=== PATIENT | female | born 2000 | race Caucasian/White ===

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

== ENCOUNTER 2022-09-19 12:00 | Inpatient (IN) | payer OTHER ==
[~2022-09-19] VITALS: Ht 165.1 cm; Wt 61.7 kg
[2022-09-19 13:04] LABS: BASOPHILS ABSOLUTE AUTO 0.02 K/mm3 (0.00-0.23); BASOPHILS PERCENT AUTO 0 % (0-2); EOSINOPHILS ABSOLUTE AUTO 0.01 K/mm3 (0.00-0.68); EOSINOPHILS PERCENT AUTO 0 % (0-6); Hematocrit 37.3 % (33.0-51.0); Hemoglobin 12.8 g/dL (11.5-16.0); IMMATURE GRAN ABSOLUTE AUTO 0.07 K/mm3 (0.00-0.10); IMMATURE GRAN PERCENT AUTO 0 % (0-1); LYMPHOCYTES ABSOLUTE AUTO 1.76 K/mm3 (0.84-5.20); LYMPHOCYTES PERCENT AUTO 10 % (21-46); MONOCYTES ABSOLUTE AUTO 1.06 K/mm3 (0.16-1.47); MONOCYTES PERCENT AUTO 6 % (4-13); Mean Corpuscular HGB 29.8 pg (26.0-34.0); Mean Corpuscular HGB Conc 34.3 g/dL (31.5-36.5); Mean Corpuscular Volume 87 fL (80-100); Mean Platelet Volume 9.9 fL (9.1-12.4); NEUTROPHILS ABSOLUTE AUTO 14.57 K/mm3 (1.96-9.15); NEUTROPHILS PERCENT AUTO 83 % (41-73); Platelet Count 278 K/mm3 (150-400); RDW Coefficient Variation 13.1 % (11.7-14.2); RDW Standard Deviation 41.1 fL (35.1-46.3); Red Blood Cell Count 4.29 M/mm3 (3.80-5.20); White Blood Cell Count 17.49 K/mm3 (4.00-11.30)
[2022-09-19 13:19] LABS: C-REACTIVE PROTEIN, EXT RANGE 9.75 mg/dL (0.000-0.300)
[2022-09-19 13:21] LABS: Albumin, Blood 3.7 g/dL (3.4-5.0); Albumin/Globulin Ratio 0.9 (0.8-1.8); Bilirubin, Total 0.7 mg/dL (0.1-1.0); Bun/Creatinine Ratio 21.9 (12.0-20.0); Calcium, Blood 9.2 mg/dL (8.5-10.1); Creatinine, Blood 0.78 mg/dL (0.40-1.00); Globulin, Blood 3.9 g/dL (2.2-4.0); Potassium, Blood 3.2 mmol/L (3.5-5.5); Total Protein, Blood 7.6 g/dL (6.4-8.2)
[2022-09-19] MEDS ORDERED: METPHE10 PO (14:34)
[2022-09-19 16:08] VITALS: BP 132/83
[2022-09-19] MEDS ORDERED: ONDA4 PO (16:11)
--- NOTE | 2022-09-19 17:53 | NUR ---
Patient admitted for submandiable abscess, patient had wisdom teeth pulled last week. High WBC, started Decadron & IV ABX. ENT consulted, attempted to aspirate abscess, unable to drain. ENT physician instructed RN to apply heating pad to jaw hourly for 20 minutes at a time. Patient can have dinner tonight, & NPO for breakfast, Patient reports constant/throbbing pain, no issues swallowing. Will continue plan of care & manage pain control.
[2022-09-19 19:56] VITALS: BP 127/71
[2022-09-20 02:38] VITALS: BP 122/88
--- NOTE | 2022-09-20 04:37 | NUR ---
SHIFT SUMMARY; NO ACUTE CHANGES OVERNIGHT. THE PT IS AXO X4 AND INDEPENDENT IN THE ROOM. THE PT HAS BEEN SELF SUCTIONING HER MOUTH, SPECIFICALLY THE PUSS THAT HAS BEEN DRAINING FROM HER ABCESS ON HER R SIDE. THE PT HAS REQUESTED PRN PAIN MEDICAION A FEW TIMES THIS EVENING. THE PT HAS VOMITED A FEW TIMES THIS SHIFT, THE PT BELIEVES IT IS R/T THE SMELL AND TASTE OF HER ABCESS. I MEDICATED THE PT FOR NAUSEA. CURRENTLY THE PT IS RESTING IN BED WITH THE BED IN THE LOWEST POSITION AND THE CALL LIGHT AT BEDSIDE. THE PT DENIES ANY SOB OR CHEST PAIN/PRESSURE.
[2022-09-20 05:25] LABS: BASOPHILS ABSOLUTE AUTO 0.01 K/mm3 (0.00-0.23); BASOPHILS PERCENT AUTO 0 % (0-2); EOSINOPHILS PERCENT AUTO 0 % (0-6); Hematocrit 35.2 % (33.0-51.0); Hemoglobin 12.1 g/dL (11.5-16.0); IMMATURE GRAN ABSOLUTE AUTO 0.07 K/mm3 (0.00-0.10); IMMATURE GRAN PERCENT AUTO 1 % (0-1); LYMPHOCYTES ABSOLUTE AUTO 0.66 K/mm3 (0.84-5.20); LYMPHOCYTES PERCENT AUTO 5 % (21-46); MONOCYTES ABSOLUTE AUTO 0.27 K/mm3 (0.16-1.47); MONOCYTES PERCENT AUTO 2 % (4-13); Mean Corpuscular HGB 29.7 pg (26.0-34.0); Mean Corpuscular HGB Conc 34.4 g/dL (31.5-36.5); Mean Corpuscular Volume 86 fL (80-100); Mean Platelet Volume 9.9 fL (9.1-12.4); NEUTROPHILS ABSOLUTE AUTO 11.54 K/mm3 (1.96-9.15); NEUTROPHILS PERCENT AUTO 92 % (41-73); Platelet Count 267 K/mm3 (150-400); RDW Coefficient Variation 12.9 % (11.7-14.2); RDW Standard Deviation 40.7 fL (35.1-46.3); Red Blood Cell Count 4.08 M/mm3 (3.80-5.20); White Blood Cell Count 12.55 K/mm3 (4.00-11.30)
[2022-09-20 05:58] LABS: Bun/Creatinine Ratio 17.8 (12.0-20.0); Calcium, Blood 8.7 mg/dL (8.5-10.1); Creatinine, Blood 0.62 mg/dL (0.40-1.00); Potassium, Blood 4.2 mmol/L (3.5-5.5)
[2022-09-20 07:19] VITALS: BP 115/74
[2022-09-20 15:32] VITALS: BP 124/80
--- NOTE | 2022-09-20 19:21 | NUR ---
SHIFT SUMMARY A&O X 4. VSS. PLEASANT & COOPERATIVE WITH ALL CARE. INDEPENDENT IN THE ROOM FOR RESTROOM USE. MEDICATED FOR PAIN & NAUSEA PER EMAR WITH GOOD RELIEF STATED BY PT. MD PROVIDED ORDERS FOR A DIET. PT USES SXN AT BEDSIDE FOR DRAINAGE OF PUS FROM ABCESSED WISDOM TOOTH SOCKETS. ABCESS IS SPONTANEOUSLY DRAINING AND L SIDE OF HER FACE IS LESS SWOLLEN THROUGHOUT THE SHIFT. IV ABX GIVEN ORDERED PER MD. WBC'S ARE TRENDING DOWN, TODAYS RESULT 12.55, YESTERDAY'S 17.49. FAMILY HAS BEEN VISITING OFF & ON THROUGHOUT SHIFT.
[2022-09-20 19:32] VITALS: BP 126/77
--- NOTE | 2022-09-21 04:07 | NUR ---
SHIFT SUMMARY PATIENT HAD NO ACUTE CHANGES. AXOX 4 AND INDEPENDENT IN ROOM. FAMILY PRESENT AT SHIFT CHANGE WITH FRIEND STAYING IN ROOM OVERNIGHT. PIV REMAINS INTACT. IV ABX INFUSED. REPORTED MOUTH PAIN X TWO AND IV DILAUDID 1 MG GIVEN PER EMAR FOR EACH EVENT. REPORTED NAUSEOUS X ONE AND IV ZOFRAN GIVEN. VSS/AFEBRILE. DENIES CHEST PAIN AND SOB. SELF SUCTION. D5 1/2NS KCL 20 MEQ INFUSING AT 100 mL/HR. CALL LIGHT IN REACH. BED IN LOWEST POSITION. WILL CONTINUE TO MONITOR UNTIL DAY SHIFT NURSE ASSUMES CARE.
[2022-09-21 05:23] VITALS: BP 108/67
[2022-09-21 07:40] VITALS: BP 120/89
[2022-09-21 15:52] VITALS: BP 120/90
--- NOTE | 2022-09-21 18:13 | NUR ---
DAYSHIFT SUMMARY No acute changes to patient status, patient continues to c/o pain in jaw, reports moderate oral drainge from abscess. Drainage is clear/pink/yellow tinged. ENT assessed patient at bedside, plan is to keep patient over night, possibly through weekend. Unasyn & Decadron administred. Dilaudid & Zofran, given PRN. Patient reports nausea w/ pain meds & oral drainage. Vitals stable. Will continue plan of care.
[2022-09-21 19:26] VITALS: BP 119/75
[2022-09-22 05:26] VITALS: BP 118/83
[2022-09-22 05:48] LABS: BASOPHILS ABSOLUTE AUTO 0.02 K/mm3 (0.00-0.23); BASOPHILS PERCENT AUTO 0 % (0-2); EOSINOPHILS PERCENT AUTO 0 % (0-6); Hematocrit 34.3 % (33.0-51.0); Hemoglobin 11.7 g/dL (11.5-16.0); IMMATURE GRAN ABSOLUTE AUTO 0.08 K/mm3 (0.00-0.10); IMMATURE GRAN PERCENT AUTO 1 % (0-1); LYMPHOCYTES ABSOLUTE AUTO 1.26 K/mm3 (0.84-5.20); LYMPHOCYTES PERCENT AUTO 11 % (21-46); MONOCYTES ABSOLUTE AUTO 0.44 K/mm3 (0.16-1.47); MONOCYTES PERCENT AUTO 4 % (4-13); Mean Corpuscular HGB 29.1 pg (26.0-34.0); Mean Corpuscular HGB Conc 34.1 g/dL (31.5-36.5); Mean Corpuscular Volume 85 fL (80-100); Mean Platelet Volume 9.8 fL (9.1-12.4); NEUTROPHILS ABSOLUTE AUTO 10.18 K/mm3 (1.96-9.15); NEUTROPHILS PERCENT AUTO 85 % (41-73); Platelet Count 283 K/mm3 (150-400); RDW Coefficient Variation 12.4 % (11.7-14.2); RDW Standard Deviation 38.9 fL (35.1-46.3); Red Blood Cell Count 4.02 M/mm3 (3.80-5.20); White Blood Cell Count 11.98 K/mm3 (4.00-11.30)
--- NOTE | 2022-09-22 06:16 | NUR ---
PT SLEPT MOST OF NIGHT. CALLS FOR NEEDS. PT "SORE" AND NAUSEA THIS AM, IV PAIN MEDS GIVEN ALONG WITH ZOFRAN. DID SPEAK WITH PT ABOUT NEED TO TRANSITION TO PO PAIN MEDS IN ORDER TO D/C HOME.
[2022-09-22 06:18] LABS: Albumin, Blood 2.9 g/dL (3.4-5.0); Albumin/Globulin Ratio 0.9 (0.8-1.8); Bilirubin, Total 0.5 mg/dL (0.1-1.0); Bun/Creatinine Ratio 17.4 (12.0-20.0); Calcium, Blood 8.6 mg/dL (8.5-10.1); Creatinine, Blood 0.63 mg/dL (0.40-1.00); Globulin, Blood 3.3 g/dL (2.2-4.0); Potassium, Blood 3.9 mmol/L (3.5-5.5); Total Protein, Blood 6.2 g/dL (6.4-8.2)
[2022-09-22 07:57] VITALS: BP 116/83
[2022-09-22 16:38] VITALS: BP 132/99
--- NOTE | 2022-09-22 17:28 | NUR ---
DAYSHIFT SUMMARY Patient AOx4, doing well today, continues to have moderate oral drainage, drainage clear/white color. Compaint of moderate pain in jaw. Transitioned to PO pain meds today, Percocet effective for pain control. ENT physician at bedside, plan is for patient to stay all weekend & discharge on saturday. MD will come see patient saturday morning to assess. Decadron IV changed to Q24h, continue to administred Unasyn Q6H. Vitals stable, afebrile. Will continue plan of care.
[2022-09-22 19:15] VITALS: BP 110/74
[2022-09-23 05:01] VITALS: BP 109/68
[2022-09-23 05:09] LABS: BASOPHILS ABSOLUTE AUTO 0.02 K/mm3 (0.00-0.23); BASOPHILS PERCENT AUTO 0 % (0-2); EOSINOPHILS ABSOLUTE AUTO 0.02 K/mm3 (0.00-0.68); EOSINOPHILS PERCENT AUTO 0 % (0-6); Hematocrit 34.2 % (33.0-51.0); Hemoglobin 11.6 g/dL (11.5-16.0); IMMATURE GRAN ABSOLUTE AUTO 0.07 K/mm3 (0.00-0.10); IMMATURE GRAN PERCENT AUTO 1 % (0-1); LYMPHOCYTES ABSOLUTE AUTO 1.95 K/mm3 (0.84-5.20); LYMPHOCYTES PERCENT AUTO 16 % (21-46); MONOCYTES ABSOLUTE AUTO 0.73 K/mm3 (0.16-1.47); MONOCYTES PERCENT AUTO 6 % (4-13); Mean Corpuscular HGB 28.9 pg (26.0-34.0); Mean Corpuscular HGB Conc 33.9 g/dL (31.5-36.5); Mean Corpuscular Volume 85 fL (80-100); Mean Platelet Volume 9.6 fL (9.1-12.4); NEUTROPHILS PERCENT AUTO 77 % (41-73); Platelet Count 284 K/mm3 (150-400); RDW Coefficient Variation 12.1 % (11.7-14.2); RDW Standard Deviation 38.1 fL (35.1-46.3); Red Blood Cell Count 4.01 M/mm3 (3.80-5.20); White Blood Cell Count 12.29 K/mm3 (4.00-11.30)
[2022-09-23 07:29] VITALS: BP 118/75
--- NOTE | 2022-09-23 15:57 | NUR ---
SHIFT SUMMARY PT AWAKE AT START OF SHIFT, DURING REPORT. DENIED NEEDS AT THAT TIME. UP INDEPENDENTLY TO [facility]. REPORTED SWELLING TO FACE SLIGHTLY IMPROVED FROM YESTERDAY. DR PULIDO IN TO SEE PT AND DISCUSS PLAN OF CARE. POSSIBLE D/C ON SATURDAY. PT REPORTING ONE OF ABSCESSES BROKE THIS AFTERNOON. PT SUCTIONING DRAINAGE HERSELF. PT REPORTED DIFFICULTY BEING ABLE TO EAT WITH SWELLING AND PAIN. PT DECLINED TO ADJUST DIET IN ANYWAY. MEDICATED X1 TO PRESENT THIS SHIFT FOR C/O PAIN. ICE AND HEAT GIVEN PER REQUEST TO ASSIST WITH PAIN. PT REQUESTING TO TAKE A SHOWER SHORTLY. SENIOR ACCOUNT REPRESENTATIVE TO ASSIST. CALL LT IN REACH.
[2022-09-23 16:41] VITALS: BP 118/84
[2022-09-23 20:15] VITALS: BP 117/75
[2022-09-24 05:05] LABS: BASOPHILS ABSOLUTE AUTO 0.01 K/mm3 (0.00-0.23); BASOPHILS PERCENT AUTO 0 % (0-2); EOSINOPHILS ABSOLUTE AUTO 0.03 K/mm3 (0.00-0.68); EOSINOPHILS PERCENT AUTO 0 % (0-6); Hematocrit 34.2 % (33.0-51.0); IMMATURE GRAN ABSOLUTE AUTO 0.09 K/mm3 (0.00-0.10); IMMATURE GRAN PERCENT AUTO 1 % (0-1); LYMPHOCYTES ABSOLUTE AUTO 1.99 K/mm3 (0.84-5.20); LYMPHOCYTES PERCENT AUTO 19 % (21-46); MONOCYTES ABSOLUTE AUTO 0.56 K/mm3 (0.16-1.47); MONOCYTES PERCENT AUTO 5 % (4-13); Mean Corpuscular HGB 29.6 pg (26.0-34.0); Mean Corpuscular HGB Conc 35.1 g/dL (31.5-36.5); Mean Corpuscular Volume 84 fL (80-100); Mean Platelet Volume 9.6 fL (9.1-12.4); NEUTROPHILS ABSOLUTE AUTO 7.65 K/mm3 (1.96-9.15); NEUTROPHILS PERCENT AUTO 74 % (41-73); Platelet Count 294 K/mm3 (150-400); RDW Coefficient Variation 12.1 % (11.7-14.2); RDW Standard Deviation 37.2 fL (35.1-46.3); Red Blood Cell Count 4.05 M/mm3 (3.80-5.20); White Blood Cell Count 10.33 K/mm3 (4.00-11.30)
[2022-09-24 05:27] VITALS: BP 118/66
[2022-09-24 07:08] VITALS: BP 116/71
[2022-09-24] MEDS ORDERED: ACET325 PO (11:34)
[2022-09-24] MEDS ORDERED: IBUP600 PO (11:35)
[2022-09-24] MEDS ORDERED: AMOCLA875 PO (11:36)
--- NOTE | 2022-09-24 13:00 | NUR ---
Pt remains A&O throughout shift. Left neck pain managed with Motrin. VSS, afebrile. Mom at bedside. All discharge instructions reviewed with return verbal understanding. Pt knows to see Dr. Ridley 09/25. Rx to [facility]. IV dc'd.
== END 2022-09-24 13:21 | disposition home or self-care (01) | DRG 862 ==
LOC: ER 12:00 → MEDS 12:01
PROVIDERS: Family Medicine; Physician Assistant; Student in an Organized Health Care Education/Training Program; ADMIT Family Medicine
PROC: 0J910ZZ Drainage of Face Subcutaneous Tissue and Fascia, Open Approach (ICD-10-PCS; 2022-09-19)
PROC: 3E03329 Introduction of Other Anti-infective into Peripheral Vein, Percutaneous Approach (ICD-10-PCS; principal; 2022-09-20)
DX: T81.49XA Infection following a procedure, other surgical site, initial encounter (principal); A41.9 Sepsis, unspecified organism; K12.2 Cellulitis and abscess of mouth; F32.A Depression, unspecified; F90.9 Attention-deficit hyperactivity disorder, unspecified type; R13.10 Dysphagia, unspecified; Z96.651 Presence of right artificial knee joint; Z79.899 Other long term (current) drug therapy; Z98.890 Other specified postprocedural states
CPT/HCPCS: 36415; 70491; 71260; 80048; 80053; 83605; 85025; 86140; 87040; 96361; 96365-59; 96375; 96376; 99284-25; A9270; G0378; J0295; J1100; J1170; J1885; J2405; J2543; J3010; J7030; J7050; Q9967

== ENCOUNTER → 2025-01-06 | Outpatient (CLI) | payer OTHER ==
[~2025-01-06] MED LIST changes: +ACET325 PO; +AMOCLA875 PO; +IBUP600 PO; +METPHE10 PO; +ONDA4 PO
[2025-01-06 15:40] LABS: Chlamydia Trachomatis Urine NOT DETECTED (NOT DETECT); Neisseria Gonorrhoea Urine NOT DETECTED (NOT DETECT)
== END ==
LOC: LAB 11:36 → LAB SHORT 11:36
PROVIDERS: Family Medicine
DX: Z12.4 Encounter for screening for malignant neoplasm of cervix (principal); Z11.3 Encounter for screening for infections with a predominantly sexual mode of transmission
CPT/HCPCS: 87491; 87591; 87624; G0145